=== PATIENT | male | born 1965 | race Hispanic/Latino ===

== ENCOUNTER 2016-12-03 11:08 | Emergency (ER) | payer BC ==
[2016-12-03 11:23] VITALS: TEMP 97.7
[2016-12-03] MEDS ORDERED: TDAP Vaccine 0.5 mL Syr IM ONE (11:45)
[2016-12-03] MEDS ORDERED: Ciprofloxacin 400mg/200ml D5W 200 ML IVPB STA (11:48)
[2016-12-03] MEDS ORDERED: Povidone Iodine Topical 10% Sol ONE (13:06)
--- NOTE | 2016-12-03 13:15 | CP.PCM.CON ---
History of Present Illness - History of Present Illness History of Present Illness: 51 year old male with no significant PMHx present to ED for complaint of nail in left foot. Patient states that 45 minutes before he arrived he was walking and stepped on a nail in [place]. He said he took a few steps before he noticed the nail and had trouble walking. The nail is sticking through his shoe. He admits to pain at the puncture site but denies any numbness. Past Patient History - Past Social History Smoking Status: Light Smoker < 10 Cigarettes Daily - PSYCHIATRIC Hx Substance Use: Yes Meds Home Medications: Home Medication List Medication Instructions Recorded Confirmed Type Ciprofloxacin [Cipro] 500 mg PO BID #27 tab 12/03/16 Rx Ibuprofen [Motrin] 600 mg PO TID PRN #30 tab 12/03/16 Rx Sulfamethoxazole/Trimethoprim 1 tab PO BID #27 tab 12/03/16 Rx [Bactrim DS 800 mg-160 mg] oxyCODONE/Acetaminophen [Percocet 1 ea PO Q6 PRN #10 tab 12/03/16 Rx 5/325 mg Tab] Allergies/Adverse Reactions: Allergies Allergy/AdvReac Type Severity Reaction Status Date / Time Penicillins Allergy RASH Verified 12/03/16 11:17 Physical Exam - Constitutional Appears: Well, Non-toxic, No Acute Distress - Extremities Exam Additional comments: Dark, metal nail noted to be lodge in left foot through sneaker. Left lower extremity focused exam (Post removal of nail and shoe): Vasc: DP and PT pulses palpable 2/4. CFT < 3 seconds to all digits. Skin temperature warm to warm from proximal to distal. Neuro: Gross sensation intact. Ortho: Pain on palpation to puncture site. Derm: Puncture site noted to medial aspect of foot, proximal to medial arch. Mild amount of edema and erythema noted around the puncture site. No purulence, no malodor, no streak noted. - Neurological Exam Neurological exam: Alert, Oriented x3 - Psychiatric Exam Psychiatric exam: Normal Affect, Normal Mood Results - Vital Signs Recent Vital Signs: Last Vital Signs Temp 97.7 F 12/03/16 11:17 Pulse 84 12/03/16 11:17 Resp 18 12/03/16 11:17 BP 131/94 H 12/03/16 11:17 Pulse Ox 99 12/03/16 11:17 Assessment & Plan - Assessment and Plan (Free Text) Assessment: 51 year old male with foreign body (metal nail) to left foot Plan: Patient examined and evaluated. Chart and vitals reviewed Discussed in detail with attending Dr. Deluna. Tetanus booster given in ED Radiographs were reviewed and a metal nail was noted to be approximately 5 cm into the soft tissue of the left foot Consent was obtained and the nail was removed from the foot with surgical plyers. Shoe and sock were then removed. Puncture site was then irrigated with copious amounts of a dilute mixture of betadine and normal sterile saline. Site was dressed with sterile gauze, ABD, kerlix, and a loose GAYLE. Post-removal radiographs were obtained and no foreign body was noted. Patient given surgical shoe for ambulation as his sneaker would not fit over the dressing Patient may ambulate as tolerated, and keep dressing clean, dry, intact until he follows up in Podiatry clinic on Monday Patient instructed if he notices any changes such as streaking, fever, chills to return to ED Rx for cipro and bactrim PO daily for 2 weeks given by DOM Arroyo for pain prn Patient to follow up on Monday, in Podiatry clinic on Monday at [facility](number give by DOM)
[2016-12-03 13:23] VITALS: BP 129/81; PULSE 60; RESP 20; O2SAT 100
--- NOTE | 2016-12-03 13:25 | RAD ---
PROCEDURE: Left Foot Radiographs. HISTORY: nail in foot COMPARISON: None. FINDINGS: BONES: Normal. No fracture. JOINTS: Normal. SOFT TISSUES: Normal. OTHER FINDINGS: There is a long nail piercing the medial plantar foot with tip overlying the proximal calcaneus. IMPRESSION: There is a long nail piercing the medial plantar foot with tip overlying the proximal calcaneus.
--- NOTE | 2016-12-03 13:42 | ED PDOC ---
Lower Extremity Pain/Injury Time Seen by Provider: 12/03/16 11:30 Chief Complaint (Nursing): Lower Extremity Problem/Injury Chief Complaint (Provider): left foot injury History Per: Patient History/Exam Limitations: no limitations Onset/Duration Of Symptoms: Mins (x 45 min) Current Symptoms Are (Timing): Still Present Additional Complaint(s): Terry Alfonso is a 51 year old male, with no previous medical history, who presents to the ED with complaints of left leg pain after stepping on a nail 45 minutes prior to arrival. Pt reports to walking in the streets of [place] when he felt a pain to the left foot. Pt reports to continuing taking a few steps before being unable to walk. Pt noticed a nail stuck in the left foot at the medical aspect which penetrated through his sneaker. Pt denies any tingling, numbness or ankle pain. Pt states tetanus vaccine is not up to date. PMD: Isabella Malloy MD Past Medical History Reviewed: Historical Data, Nursing Documentation, Vital Signs Vital Signs: Last Vital Signs Temp 97.7 F 12/03/16 11:17 Pulse 60 12/03/16 13:23 Resp 20 12/03/16 13:23 BP 129/81 12/03/16 13:23 Pulse Ox 100 12/03/16 13:23 - Medical History PMH: No Chronic Diseases - Family History Family History: States: Unknown Family Hx - Immunization History Hx Tetanus Toxoid Vaccination: No Hx Influenza Vaccination: No Hx Pneumococcal Vaccination: No - Home Medications Home Medications: Ambulatory Orders Medication Instructions Recorded Ciprofloxacin [Cipro] 500 mg PO BID #27 tab 12/03/16 Ibuprofen [Motrin] 600 mg PO TID PRN #30 tab 12/03/16 Sulfamethoxazole/Trimethoprim 1 tab PO BID #27 tab 12/03/16 [Bactrim DS 800 mg-160 mg] oxyCODONE/Acetaminophen [Percocet 1 ea PO Q6 PRN #10 tab 12/03/16 5/325 mg Tab] - Allergies Allergies/Adverse Reactions: Allergies Allergy/AdvReac Type Severity Reaction Status Date / Time Penicillins Allergy RASH Verified 12/03/16 11:17 Review of Systems ROS Statement: Except As Marked, All Systems Reviewed And Found Negative Neurological: Negative for: Weakness, Numbness, Other (tingling ) Physical Exam - Reviewed Nursing Documentation Reviewed: Yes Vital Signs Reviewed: Yes - Physical Exam Appears: Positive for: Non-toxic, In Acute Distress (moderate painful) Head Exam: Positive for: ATRAUMATIC, NORMAL INSPECTION, NORMOCEPHALIC Skin: Positive for: Normal Color, Warm, DRY Eye Exam: Positive for: EOMI, Normal appearance, PERRL Cardiovascular/Chest: Positive for: Regular Rate, Rhythm Respiratory: Positive for: CNT, Normal Breath Sounds Extremity: Positive for: Capillary Refill (cannot be determined at this point), Other (dark thick nail at the arch of the foot. Senses intact. shoes left in place pending x-ray.). Negative for: Calf Tenderness Neurologic/Psych: Positive for: Alert, Oriented. Negative for: Motor/Sensory Deficits - ECG O2 Sat by Pulse Oximetry: 100 (RA) Pulse Ox Interpretation: Normal Medical Decision Making Medical Decision Making: Initial Impression: 51 year old male with nail in the left foot Initial Plan: * ativan * ativan * boostrix vaccine * ciproflaxacin * morphine * morphine * podiatry consult * x-ray left foot Shoe left in place pending x-ray, not sure how deep the nail is inserted and may need surgical intervention. Did not want to damage any nerves. X-ray was indicative of nail being inserted approximately 4-5 cm into the soft tissue of the medial foot with no evidence of bone contact. Podiatry consulted and spoke with Dr. Philippe in for evaluation. x ray reviewed; she discussed the case with attending Dr. Deluna. Podiatry will be preforming a nail removal procedure. Scribe Attestation: Documented by Lesley Reid, acting as a scribe for Chris Andrews PA-C. Provider Scribe Attestation: All medical record entries made by the Scribe were at my direction and personally dictated by me. I have reviewed the chart and agree that the record accurately reflects my personal performance of the history, physical exam, medical decision making, and the department course for this patient. I have also personally directed, reviewed, and agree with the discharge instructions and disposition. Nail removed and wound dressed by podiatry. tolerated the procedure well. surgical shoe placed. follow up arranged by Dr. Philippe with clinic 12/04. discharge instructions discussed by her and pattern chart writer. return information discussed. repeat x ray no FB noted. pedal pulse 2+, sensation intact, FROM to the foot, ankle and toes, cap refill is normal. dressing in place. Disposition - Clinical Impression Clinical Impression: Foreign body in foot, Puncture wound - Patient ED Disposition Is Patient to be Admitted: No Counseled Patient/Family Regarding: Studies Performed, Diagnosis, Need For Followup, Rx Given - Disposition Referrals: Podiatry Clinic [Outside] Disposition: Routine/Home Disposition Time: 14:50 Condition: IMPROVED Additional Instructions: keep clean and dry take medications as prescribed follow up with podiatry as arranged with them return for severe pain, fevers, swelling/redness or any new concerns. Prescriptions: Sulfamethoxazole/Trimethoprim [Bactrim DS 800 mg-160 mg] 1 tab PO BID #27 tab Ciprofloxacin [Cipro] 500 mg PO BID #27 tab Ibuprofen [Motrin] 600 mg PO TID PRN #30 tab PRN Reason: Other oxyCODONE/Acetaminophen [Percocet 5/325 mg Tab] 1 ea PO Q6 PRN #10 tab PRN Reason: Other Instructions: Puncture Wound (ED), Soft Tissue Foreign Body (ED) Forms: [facility] ED School/Work Excuse Print Language: BELARUSIAN
[2016-12-03] MEDS ORDERED: Tmp-Smz 800 mg-160 mg DS Tab PO STA (14:01)
[2016-12-03] MEDS ORDERED: Tmp-Smz 800 mg-160 mg DS Tab ONE (14:22)
--- NOTE | 2016-12-03 14:34 | RAD ---
PROCEDURE: Left Foot Radiographs. HISTORY: post nail extraction COMPARISON: None. FINDINGS: BONES: Normal. No fracture. JOINTS: Normal. SOFT TISSUES: Normal. OTHER FINDINGS: None. IMPRESSION: Normal left foot radiographs.No residual screw.
== END 2016-12-03 14:54 | disposition home or self-care (01) ==
LOC: H.ER 11:08
DX: T14.8 Other injury of unspecified body region (principal); S90.859A Superficial foreign body, unspecified foot, initial encounter; W45.0XXA Nail entering through skin, initial encounter; Y92.410 Unspecified street and highway as the place of occurrence of the external cause
CPT/HCPCS: 73630; 90471; 90715; 96374; 96375; 96376; 99284; J0744; J2270